=== PATIENT | female | born 1985 | race Caucasian/White ===

== ENCOUNTER 2020-11-09 16:50 | Emergency (ER) | payer OTHER ==
[~2020-11-09] VITALS: Ht 172.7 cm; Wt 56.7 kg
== END 2020-11-09 21:23 | disposition home or self-care (01) ==
LOC: ED 16:50
DX: R05 Cough (principal)
CPT/HCPCS: 71046; 99283-25

== ENCOUNTER 2021-07-28 10:21 | Emergency (ER) | payer OTHER ==
[~2021-07-28] VITALS: Ht 172.7 cm; Wt 62.1 kg
--- OUTSIDE RECORDS SUMMARY | 2021-07-28 10:24 | XMS ---
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 Tiffanie VISIT COUNT (12 MO.) 2 ESTEFANÍA Ramirez TOTAL 2 NOTE: Visits indicate total known visits. ED/UCC VISIT TRACKING (12 MO.) 07/28/2021 10:22 ESTEFANÍA Piedra OR TYPE: Emergency COMPLAINT: - ANIMAL BITE, R HAND SWOLLEN 11/09/2020 16:51 ESTEFANÍA Piedra OR TYPE: Emergency COMPLAINT: - CHEST PAIN/DIFFICULTY BREATHING DIAGNOSES: - Cough - Chest pain, unspecified INPATIENT VISIT TRACKING (12 MO.) No inpatient visits to display in this time frame [email or web address]
[2021-07-28] MEDS ORDERED: FLUOXETINE HCL40 MG PO (10:37)
[2021-07-28] MEDS ORDERED: ARIPIPRAZOLE10 MG PO (10:38)
[2021-07-28] MEDS ORDERED: PRAZOSIN HCL1 MG PO (10:38)
[2021-07-28] MEDS ORDERED: AMPHETAMINE SAL20 MG PO (10:38)
[2021-07-28] MEDS ORDERED: AMOX TR-K CLV1 EAC1 PO (12:06)
== END 2021-07-28 12:17 | disposition home or self-care (01) ==
LOC: ED 10:21
DX: L03.113 Cellulitis of right upper limb (principal); Z79.899 Other long term (current) drug therapy
CPT/HCPCS: 36415; 80048; 85025; 96374; 99283-25; J0295

== ENCOUNTER 2021-12-04 23:59 | Emergency (ER) | payer OTHER ==
[~2021-12-04] VITALS: Ht 162.6 cm; Wt 67.4 kg
[~2021-12-04 23:59] MED LIST: AMOX TR-K CLV1 EAC1 PO; AMPHETAMINE SAL20 MG PO; ARIPIPRAZOLE10 MG PO; FLUOXETINE HCL40 MG PO; PRAZOSIN HCL1 MG PO
--- OUTSIDE RECORDS SUMMARY | 2021-12-05 00:04 | XMS ---
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 Tiffanie VISIT COUNT (12 MO.) 2 ESTEFANÍA Ramirez TOTAL 2 NOTE: Visits indicate total known visits. ED/UCC VISIT TRACKING (12 MO.) 12/05/2021 00:01 ESTEFANÍA Piedra OR TYPE: Emergency COMPLAINT: - TOOTH PAIN 07/28/2021 10:22 ESTEFANÍA Piedra OR TYPE: Emergency COMPLAINT: - R HAND SWOLLEN DIAGNOSES: - Other fdc (current) drug therapy - Cellulitis of right upper limb INPATIENT VISIT TRACKING (12 MO.) No inpatient visits to display in this time frame [email or web address]
[2021-12-05] MEDS ORDERED: MINIPRESS1 MG PO (00:10)
[2021-12-05] MEDS ORDERED: PROPRANOLOL HCL10 MG PO (00:10)
[2021-12-05] MEDS ORDERED: ARIPIPRAZOLE10 MG PO (00:11)
[2021-12-05] MEDS ORDERED: AMOXICILLIN500 MG PO (00:29)
== END 2021-12-05 01:00 | disposition home or self-care (01) ==
LOC: ED 23:59
DX: K04.7 Periapical abscess without sinus (principal)
CPT/HCPCS: 64400; 99283-25; A9270

== ENCOUNTER 2022-10-03 06:40 | Day surgery (SDC) | payer OTHER ==
[2022-09-28 10:46] VITALS: BP 109/70
[~2022-10-03] VITALS: Ht 162.6 cm; Wt 59.5 kg
[~2022-10-03 06:40] MED LIST changes: +AMOXICILLIN500 MG PO; +LEVETIRACETAM750 MG PO; +MINIPRESS1 MG PO; +PROPRANOLOL HCL10 MG PO
[2022-10-03 06:54] VITALS: BP 105/61
--- NOTE | 2022-10-03 07:34 | NUR ---
PT WAS RESTING IN BED WITH EYES CLOSED AND HEAD TURNED TO SIDE. APPEARED TO BE SLEEPING. DID NOT DISTURB. SAID SILENT PRAYER FOR SUCCESSFUL PROCEDURE AND AWARENESS OF DIVINE PRESENCE.
--- NOTE | 2022-10-03 10:49 | NUR ---
0820,0930,1040 looked in on pt. lying on r side eyes closed even resp. lights low per her req and has warm blankets on. requested to be allowed to sleep as dr morel had emergency surgery delaying her surgery.
--- NOTE | 2022-10-03 11:09 | NUR ---
PT TO BR. STATES HAD GOOD NAP. ELECTRIC TRUCK DRIVER IN TO TALK WITH PT.
[2022-10-03] MEDS ORDERED: IBUPROFEN600 MG PO (12:10)
[2022-10-03] MEDS ORDERED: HYDROCODON-ACE1 EA10 PO (12:11)
[2022-10-03] MEDS ORDERED: ACETAMINOPHEN500 MG PO (12:11)
--- NOTE | 2022-10-03 13:20 | NUR ---
10/03/22 1320 Mandy Donnelly 1158- PT ARRIVES TO PACU UNIT FROM OR. PT IS UNRESPONSIVE TO TACTILE STIMULI AT THIS TIME. ORAL AIRWAY IN PLACE, JAW THRUST IN PLACE TO SUPPORT AIRWAY. PT ON 6L OF O2 VIA MASK AT THIS TIME, O2 >90%. RESPIRATIONS ARE EVEN AND UNLABORED, NO SIGNS OF DISTRESS. 1205- PT ENCOURAGED TO TAKE DEEP BREATHS BUT ONLY RESPONSIVE TO TACTILE STIMULI AT THIS TIME. 1208- DECREASE NOTED IN PT RESPIRATORY DRIVE AND PERIODS OF APNEA. PT DROPS TO 80%, O2 INCREASED VIA MASK TO 10L. PT HOB INCREASED TO 50 DEGREES AT THIS TIME. PAINFUL STIMULI APPLIED W/JAW THRUST FOR PT TO TAKE DEEP BREATHS. LINK AND LINK KNITTING MACHINE OPERATOR AT BEDSIDE, ORAL AIRWAY REMOVED BY LINK AND LINK KNITTING MACHINE OPERATOR AT THIS TIME. 1210- PT TITRATED BACK DOWN TO 6L OF O2 VIA MASK FROM 10L, PT FOLLOWING INSTRUCTIONS TO COUGH AND DEEP BREATH WHEN INSTRUCTED. 1212- JANAY ROSEN AT BEDSIDE UPDATING PT ABOUT PROCEDURE. PT EYES REMAIN CLOSED BUT MUMBLES VERBAL RESPONSE. PT HAS LITTLE RESPIRATORY RESERVE AND RR QUICKLY DROPS, PT REQUIRES ENCOURAGEMENT FOR BREATHS. 1225- PT OPENS EYES OCCASIONALLY AND SURENDRA TO FOLLOW COMMANDS AT THIS TIME. PT TALKING AND ASKS QUESTIONS APPROPRIATELY. PT RESPONSIVE TO VERBAL STIMULI. 1230- PT O2 REMOVED AT THIS TIME AND O2 REMAINS >90% ON RA. RESPIRATIONS ARE EVEN AND UNLABORED, PT STILL REQUIRES VERBAL STIMULI TO TAKE DEEP BREATHS. PT REMAINS VERY DROWSY.
[2022-10-03 13:25] VITALS: BP 104/52
--- NOTE | 2022-10-03 13:31 | NUR ---
EATING JELLO AND CRACKERS TAKING FLUIDS.
--- NOTE | 2022-10-03 13:55 | NUR ---
UP TO BR. AMB WELL. VOIDS 100MLS YELLOW URINE. DENIES PAIN. REQ MORE JELLO AND PUDDING.
[2022-10-03 14:14] VITALS: BP 100/56
--- NOTE | 2022-10-05 14:11 | OR ---
[facility] [address] [place], [place] [address] Signed DATE OF OPERATION: 10/03/2022 SURGEON: Dennis Gustafson MD PREOPERATIVE DIAGNOSIS: History of right posterior thorax dermatofibroma, incomplete excision. POSTOPERATIVE DIAGNOSIS: History of right posterior thorax dermatofibroma, incomplete excision. PROCEDURE: Full-thickness wide excision of right posterior thorax dermatofibroma, (4.1 cm excision size). ANESTHESIA: General, LMA, Dennis Quick CRNA and local 10 mL of 0.25% Marcaine with epinephrine. INDICATION: This 37-year-old white woman is a patient of Li German and a member of the [employer]. She had a nodule on the right posterior thorax and was referred to a account services analyst practice, who performed excision of the lesion and found to be a dermatofibroma. Incomplete excision was noted (this was performed by , DEISY. This all occurred in 2020. She was seen by me on August 02, 2022 for re-excision given the pathologic findings. The risk of bleeding, infection, and recurrence related to excision were reviewed with her, she understands and wished to proceed. FINDINGS: The lesion was easily identified in the right superior posterior thorax. Wide excision was undertaken along the line of skin tension. A 4.1 cm excision was accomplished with a clinically negative margin. DESCRIPTION OF PROCEDURE: The patient was brought to the operating room, placed in the lateral decubitus position after undergoing LMA general anesthesia. Preoperative antibiotic Ancef was given. Sequential compression device stockings were used. The lesion in question had been marked preoperatively and was easily identified. It is in the right posterior thorax in the scapular area. The line of skin tension was ascertained and the most appropriate course of re-excision would be transversely. Elliptical incision was made directly around the remaining scar with clinically negative margin throughout. Full-thickness excision was accomplished using sharp technique. Hemostasis was assured with Electronically Signed By: DENNIS GUSTAFSON MD 10/05/22 1411 PATIENT NAME: SHAMIKA ROBLES OPERATIVE REPORT DATE OF : 87 REPORT #: [id number] PHYSICIAN: DENNIS GUSTAFSON MD PCP: LI GERMAN PA-C REPORT IS CONFIDENTIAL AND NOT TO BE RELEASED WITHOUT AUTHORIZATION [address] [address] Signed electrocautery. Flaps were elevated superiorly and inferiorly to allow for tension-free closure. The wound. This was closed with interrupted 2-0 Vicryl and running subcuticular 3-0 Vicryl for the skin. Steri-Strips were applied as was an Acticoat dressing. She was returned to the supine position ultimately extubated and transferred to recovery room in good condition. BLOOD LOSS: Minimal. COMPLICATIONS: None. MD LUCITA Daniel/AYLIN /[id number] cc: Li German PA-C Copies: LI GERMAN PA-C ~ Electronically Signed By: DENNIS GUSTAFSON MD 10/05/22 1411 PATIENT NAME: REHAN ROBLESICA MCKAYLA OPERATIVE REPORT DATE OF : 87 REPORT #: [id number] PHYSICIAN: DENNIS GUSTAFSON MD PCP: LI GERMAN PA-C REPORT IS CONFIDENTIAL AND NOT TO BE RELEASED WITHOUT AUTHORIZATION
--- NOTE | 2022-10-06 10:37 | PATH ---
[facility] [address] [place], [place] [address] Signed SPECIMEN(S): A RIGHT POSTERIOR THORAX SPECIMEN SOURCE: A. RIGHT POSTERIOR THORAX CLINICAL HISTORY: Excision of skin lesion FINAL PATHOLOGIC DIAGNOSIS: Skin right posterior thorax, excision: - Intradermal cellular spindle cell proliferation, excised. (see comment) - Tumor spans approximately 1.5 x 1 x 0.5 cm. - Tumor is free of the peripheral and deep surgical margins by approximately 3 mm. COMMENT: The immunohistochemical features support a diagnosis of dermatofibroma. VR:[facility] MICROSCOPIC EXAMINATION: Histologic sections of all submitted blocks are examined by light microscopy. These findings, together with the gross examination, support the pathologic diagnosis. Immunostains are performed with appropriate controls on block (A2) and show the following: - CD10: Positive in cells of concern. - Factor 13a: Positive in cells of concern. - S-100: A few scattered positive cells in area of concern. - CD34: Negative in cells of concern. - Melan A: Negative in cells of concern. - Cytokeratin AE1/3: Negative in cells of concern. JVR:[facility] GROSS DESCRIPTION: The specimen, labeled and designated ", A" and designated on the requisition "right posterior skin lesion re-excision, right posterior thorax," is received in formalin and consists of and unoriented ellipse of skin (3.4 cm in length, 1.7 cm in width, and excised to a depth of 1.0 cm) with central wrinkled area (1.0 x 0.7 cm) located 0.5 cm from the radial margin. The radial skin and soft tissue margin are inked blue and the deep margin is inked black. The PATIENT NAME: SHAMIKA ROBLES PATHOLOGY DATE OF : 87 REPORT #: [id number] PHYSICIAN: EILEEN PATHOLOGY PCP: MO MAE PA-C REPORT IS CONFIDENTIAL AND NOT TO BE RELEASED WITHOUT AUTHORIZATION [facility] [address] [place], [place] [address] Signed specimen is serially sectioned to reveal an orange-mars nodular area (1.3 x 1.0 x 0.4) located 0.3 cm from the deep margin and 0.5 cm from the radial margin. The specimen is submitted entirely in cassette A1-A3. AC (under the direct supervision of a pathologist) The Gross Description was prepared using a voice recognition system. The report was reviewed for accuracy; however, sound-alike word errors, addition and/or deletions may occur. If there is any question about this report, please contact Client Services. ADDITIONAL NOTES: Immunohistochemical and/or in situ hybridization studies were performed on this case with the appropriate positive controls that react as expected. This test was developed and its performance characteristics determined by [facility]. It has not been cleared or approved by the U.S. Food and Drug Administration. The FDA has determined that such clearance or approval is not necessary. This test is used for clinical purposes. It should not be regarded as investigational or for research. [facility] is certified under the Clinical Laboratory Improvement Amendments of 1988 (CLIA) as qualified to perform high complexity clinical laboratory testing. This assay has not been validated for specimens that have been decalcified. PERFORMING LABORATORY: Technical component was performed by [facility], [address] [place] [id number] (CLIA# [id number]). Professional interpretation was performed by [facility], [address] [place] [address] Ave[address] [place] [address] (CLIA#: [id number]). Diagnostician: Sam Peace MD Pathologist Electronically Signed 10/06/2022 Copies: ~ PATIENT NAME: SHAMIKA ROBLES MCKAYLA PATHOLOGY DATE OF : 87 REPORT #: [id number] PHYSICIAN: EILEEN POE PCP: MO MAE PA-C REPORT IS CONFIDENTIAL AND NOT TO BE RELEASED WITHOUT AUTHORIZATION
== END 2022-10-03 14:25 | disposition home or self-care (01) ==
LOC: DS 06:40
PROVIDERS: ATTEND Surgery
PROC: 0HB5XZZ Excision of Chest Skin, External Approach (ICD-10-PCS; principal; 2022-10-03 07:30)
DX: D48.5 Neoplasm of uncertain behavior of skin (principal); F31.9 Bipolar disorder, unspecified; F90.0 Attention-deficit hyperactivity disorder, predominantly inattentive type
CPT/HCPCS: 00300; J0690; J1100; J1644; J1885; J2250; J2405; J2704; J2765; J3010; J7121

== ENCOUNTER 2024-03-24 15:37 | Emergency (ER) | payer OTHER ==
[~2024-03-24] VITALS: Ht 162.6 cm; Wt 65.8 kg
[~2024-03-24 15:37] MED LIST changes: +ACETAMINOPHEN500 MG PO; +HYDROCODON-ACE1 EA10 PO; +IBUPROFEN600 MG PO
[2024-03-24] MEDS ORDERED: levETIRAcetam 500 MG TAB PO ONE (15:45)
[2024-03-24] MEDS ORDERED: OMEPRAZOLE20 MG PO (15:49)
[2024-03-24] MEDS ORDERED: IBUPROFEN800 MG PO (15:49)
[2024-03-24] MEDS ORDERED: FLUTICASONE-SA1 EAC5 INH (15:49)
[2024-03-24 17:06] VITALS: BP 109/75
== END 2024-03-24 17:06 | disposition home or self-care (01) ==
LOC: ED 15:37
DX: G40.909 Epilepsy, unspecified, not intractable, without status epilepticus (principal); T42.6X6A Underdosing of other antiepileptic and sedative-hypnotic drugs, initial encounter; Z91.148 Patient's other noncompliance with medication regimen for other reason; Z79.899 Other long term (current) drug therapy
CPT/HCPCS: 99284

== ENCOUNTER 2024-05-28 14:03 | Emergency (ER) | payer OTHER ==
[~2024-05-28] VITALS: Ht 162.6 cm; Wt 56.5 kg
[~2024-05-28 14:03] MED LIST changes: +FLUTICASONE-SA1 EAC5 INH; +IBUPROFEN800 MG PO; +OMEPRAZOLE20 MG PO
[2024-05-28] MEDS ORDERED: ZOLOFT25 MG (16:20)
[2024-05-28] MEDS ORDERED: PROPRANOLOL HCL10 MG (16:21)
[2024-05-28] MEDS ORDERED: PRAZOSIN HCL1 MG (16:21)
[2024-05-28] MEDS ORDERED: AMOX TR-K CLV1 EAC1 PO (16:56)
[2024-05-28 17:02] VITALS: BP 109/68
== END 2024-05-28 17:05 | disposition home or self-care (01) ==
LOC: ED 14:03
DX: K04.7 Periapical abscess without sinus (principal); K02.9 Dental caries, unspecified; Z79.899 Other long term (current) drug therapy; Z79.51 Long term (current) use of inhaled steroids
CPT/HCPCS: 99283